=== PATIENT | female | born 1990 | race African-American/Black ===

== ENCOUNTER 2017-03-04 20:57 | Inpatient (IN) | payer OTHER ==
[~2017-03-04 20:57] MED LIST: Lidocaine 2% PF 10 ML AMP (For Epidural Use) ONE; ePHEDrine/0.9% NaCl/PF SYRINGE 50 mg/10 ml ONE
[2017-03-04 21:21] VITALS: BMI 23.6
[2017-03-04] MEDS ORDERED: LR / Pitocin 40 units/1000 ml 1,000 ML IV PRN (21:28)
[2017-03-04] MEDS ORDERED: Ondansetron HCl/PF 4 MG/2 ML Vial IVP PRN ×2 (21:28→22:45)
[2017-03-04] MEDS ORDERED: HYDROcodone/Acetaminophen 5/325 mg Tablet PO PRN ×2 (21:28)
[2017-03-04] MEDS ORDERED: Ibuprofen 800 MG TAB PO PRN (21:28)
[2017-03-04] MEDS ORDERED: Fentanyl 4 mcg/Marc 0.1% Cadd 100 ML ONE (21:45)
[2017-03-04 21:57] LABS: Hematocrit 35.1 % (36.0-47.0); Mean Platelet Volume 9.2 fL (7.4-10.4); Red Blood Cell (RBC) Count 3.96 mill/uL (4.20-5.40); White Blood Cell (WBC) Count 11.1 thou/uL (4.8-10.8)
[2017-03-04] MEDS ORDERED: Lidocaine 1% (PF) 30 ML VIAL SC PRN (22:00)
[2017-03-04] MEDS ORDERED: Lactated Ringer's 1,000 ML IV SCH ×2 (22:00→22:30)
[2017-03-04] MEDS ORDERED: Naloxone HCl 0.4 mg/ml Vial IVP PRN ×2 (22:45)
[2017-03-04] MEDS ORDERED: Lactated Ringer's 500 ML IV PRN (22:45)
[2017-03-04] MEDS ORDERED: Communication Order-Pharmacy FS SCH (22:45)
[2017-03-04] MEDS ORDERED: ePHEDrine/0.9% NaCl/PF SYRINGE 50 mg/10 ml SLOW IVP PRN (22:45)
[2017-03-04] MEDS ORDERED: Promethazine HCl 25 MG/ML VIAL IM PRN (22:45)
[2017-03-04] MEDS ORDERED: diphenhydrAMINE 50 MG/ML VIAL IVP PRN (22:45)
[2017-03-04] MEDS ORDERED: Fentanyl 4mcg/Marcaine 0.1% Cassette 100 ML EPIDURAL SCH (22:45)
[2017-03-04] MEDS ORDERED: Acetaminophen 325 MG TAB PO PRN (22:45)
[2017-03-04] MEDS ORDERED: Eucerin (Mineral Oil/Petrolatum,White) 30 gm Jar TOP PRN (22:45)
[2017-03-05] MEDS ORDERED: Bisacodyl 10 MG SUPP PR PRN (04:09)
[2017-03-05] MEDS ORDERED: Milk Of Magnesia 30 ML UDCUP PO PRN (04:09)
[2017-03-05] MEDS ORDERED: diphenhydrAMINE 25 MG CAP PO PRN (04:09)
[2017-03-05] MEDS ORDERED: Ondansetron HCl/PF 4 MG/2 ML Vial IVP PRN (04:09)
[2017-03-05] MEDS ORDERED: Lanolin Ointment 7 GM TUBE TOP PRN (04:09)
[2017-03-05] MEDS ORDERED: LR / Pitocin 40 units/1000 ml 1,000 ML IV SCH (04:15)
[2017-03-05] MEDS ORDERED: Adacel (T-DAP) 0.5 ML VIAL IM ONE (04:30)
[2017-03-05] MEDS: Ibuprofen 800 MG TAB PO SCH ×3 (04:50→22:16)
[2017-03-05] MEDS: Prenatal Vitamin 1 TAB PO SCH (07:54)
[2017-03-05] MEDS: Docusate (Surfak) 240 MG CAP PO SCH ×2 (07:54→20:02)
[2017-03-05] MEDS: Acetaminophen/Codeine 30-300mg Tablet PO PRN ×2 (07:54→20:01)
[2017-03-05] MEDS ORDERED: FLU VACC QS2017-18 36 mo. & older 0.5 ML SYRINGE IM ONE (09:00)
--- NOTE | 2017-03-05 10:08 | DN ---
DATE OF DELIVERY: 03/04/2017 The patient delivered a female at 2354 on 03/04/2017. Apgars were 8 and 9, weight 3128 grams . Placenta delivered spontaneously followed by Pitocin infusion. There was a small labial lacerati on repaired with 3-0 chromic in the usual fashion. Estimated blood loss is [address] Salas is the delivering physician. Mother and baby were stable in the room in the immediate .
--- NOTE | 2017-03-05 10:28 | PRG ---
DATE OF SERVICE: 03/05/2017 SUBJECTIVE: The patient is a 27-year-old multiparous female day 2, status post a term sp ontaneous vaginal delivery. Significant is that the patient has had no care. She reports that she is tolerating p.o., voiding on her own, having decreased lochia and ambulating. PHYSICAL EXAMINATION: VITAL SIGNS: Today, blood pressure 127/71, temperature 98.2, pulse of 81, respiratory rate of 16. GENERAL: She appears to be in no acute distress. She is alert and oriented, and cooperative and pl easant to interact with. HEAD: Normocephalic, atraumatic. ABDOMEN: Fundus is firm at the umbilicus -1. EXTREMITIES: Nontender, nonedematous. LABORATORY DATA: hemoglobin is pending. ASSESSMENT AND PLAN: The patient is a 27-year-old female day 2, status post a term spont aneous vaginal delivery. Anticipate discharge tomorrow.
[2017-03-05] MEDS: Ferrous Sulfate 325 MG TAB PO SCH ×2 (14:10→18:12)
[2017-03-06 05:06] LABS: Red Blood Cell (RBC) Count 3.35 mill/uL (4.20-5.40); White Blood Cell (WBC) Count 11.7 thou/uL (4.8-10.8)
[2017-03-06] MEDS: Ibuprofen 800 MG TAB PO SCH ×3 (06:09→21:51)
[2017-03-06] MEDS: Acetaminophen/Codeine 30-300mg Tablet PO PRN (06:10)
--- NOTE | 2017-03-06 06:47 | PDOC.PP ---
Post Progress Note Post Day #: 2 Subjective: 03/06/17 at 0645: Patient doing well. No havevy vag bleed. Ready for dsch. PO intake tolerated: yes Flatus: yes Ambulation: yes Vital Signs (12 hours) Temp Pulse Resp BP 03/05/17 20:00 96.2 F L 95 18 127/71 Weight Weight 146 lb - Physical Examination General: NAD Cardiovascular: no m/r/g Respiratory: clear to auscultation bilaterally Abdominal: + bowel sounds, appropriately TTP Psychiatric: A&Ox3 Result Diagrams: 03/06/17 04:50 Additional Labs: Post Labs Hep Bs Antigen Non-Reactive S/CO (NonReactive) 03/04/17 21:47 (1) No care in current Code(s): O09.30 - SUPRVSN OF PREG W INSUFFICIENT ANTENAT CARE, UNSP TRIMESTER Status: Acute (2) Routine follow-up Code(s): Z39.2 - ENCOUNTER FOR ROUTINE FOLLOW-UP Status: Acute - Assessment/Plan Routine care. Doing well. OK for discharge. Patient wishes to return to work in 2 weeks. Motrin prn. Regular diet. No sexual activity for 4 weeks.
--- NOTE | 2017-03-06 06:56 | PDOC.EVN ---
Event Note - Event Note Event Note: 03/06/17 at 0650: DISCHARGE HOLD: I had originally scheduled patient for discharge this AM. She delivered @ 2300 on 03/04/17 and we do not have a GBS result. I discussed release with nursery. Neonataology will keep the baby in for 48 hours obs for no GBS care. Baby seems to have a screen positive for amphetamines. HOWEVER, mother's drug screen was negative on 03/03/17. Unsure if this reflects maternal use prior to presentation or medication administered in labor (epedra?). She had an epidural intrapartum. I will recollect urine tox now and reassess methamphetamines in maternal system. I interviewed the patient. She denies any illict substances. She admits to past use of seroquel only. case management aware.
[2017-03-06] MEDS: Docusate (Surfak) 240 MG CAP PO SCH ×2 (09:21→21:51)
[2017-03-06] MEDS: Prenatal Vitamin 1 TAB PO SCH (09:21)
[2017-03-06] MEDS: Ferrous Sulfate 325 MG TAB PO SCH ×2 (09:21→17:28)
[2017-03-06 10:43] LABS: Amphetamine Not Detected (NotDetected); Methadone Not Detected (NotDetected); Methamphetamine Not Detected (NotDetected)
[2017-03-07] MEDS: Ibuprofen 800 MG TAB PO SCH (05:57)
--- NOTE | 2017-03-07 07:18 | DIS ---
ADMITTING DIAGNOSIS: Labor, and no care. DISCHARGE DIAGNOSIS: Labor, and no care. PROCEDURE: Term spontaneous vaginal delivery. CONSULTATIONS: None. HOSPITAL COURSE: The patient is a 27-year-old female who presented in active labor without care. She ultimately delivered successfully with a term spontaneous vaginal delivery. Her postpar konstantin course has been uncomplicated. She is tolerating p.o., voiding on her own, having decreased loc hia. PHYSICAL EXAMINATION: VITAL SIGNS: Blood pressure 132/82, temperature 98.4, pulse 74, respiratory rate 16. GENERAL: She appears to be in no acute distress. She is alert and oriented, and cooperative and pl easant to interact with. HEAD: Normocephalic, atraumatic. PELVIC: Fundus is firm. EXTREMITIES: Nontender, nonedematous. Her hemoglobin is 9.7, hematocrit 30.0, platelets 142,000. Drug screen came back negativ e; however, baby's came back positive for methamphetamines. The patient is being discharged home. She has Motrin for pain control and has instructions to follo w up with the [facility] [place] in 4-6 weeks for routine check. The patient h as also been given instructions to seek medical attention sooner if she experiences fever, increasin g pain or bleeding.
[2017-03-07] MEDS: Ferrous Sulfate 325 MG TAB PO SCH (09:36)
[2017-03-07] MEDS: Prenatal Vitamin 1 TAB PO SCH (09:36)
[2017-03-07] MEDS: Docusate (Surfak) 240 MG CAP PO SCH (09:36)
[2017-03-07] MEDS: Acetaminophen/Codeine 30-300mg Tablet PO PRN (09:36)
[2017-03-07 09:44] VITALS: BP 123/73; TEMP 98.6
[2017-03-07] MEDS ORDERED: FLU VACC QS2017-18 36 mo. & older 0.5 ML SYRINGE IM ONE (12:30)
== END 2017-03-07 14:05 | disposition home or self-care (01) | DRG 775 ==
LOC: L&D/OP 20:57 → L&D 21:33 → 3SW 03-05 02:05
PROVIDERS: ADMIT Obstetrics & Gynecology; ATTEND Obstetrics & Gynecology
PROC: 10E0XZZ Delivery of Products of Conception, External Approach (ICD-10-PCS; principal; 2017-03-04)
PROC: 0UQMXZZ Repair Vulva, External Approach (ICD-10-PCS; 2017-03-04)
DX: O77.0 Labor and delivery complicated by meconium in amniotic fluid (principal); O70.0 First degree perineal laceration during delivery; Z3A.40 40 weeks gestation of pregnancy; Z37.0 Single live birth
CPT/HCPCS: 36415; 80306; 85027; 86780; 87340; 88307; 90471; 90682; 90715; G0008; J2001; Q2036

== ENCOUNTER 2018-01-07 16:18 | Emergency (ER) | payer OTHER | END 2018-01-07 16:43 | disposition home or self-care (01) | LOC: ERS 16:18 | DX: K04.7 Periapical abscess without sinus (principal); F41.9 Anxiety disorder, unspecified; F32.9 Major depressive disorder, single episode, unspecified; F17.210 Nicotine dependence, cigarettes, uncomplicated | CPT/HCPCS: 99283 ==

== ENCOUNTER 2018-03-17 01:10 | Emergency (ER) | payer OTHER ==
[2018-03-17] MEDS ORDERED: Acetaminophen 500 MG TAB ONE (03:58)
[2018-03-17 04:04] LABS: Specific Gravity 1.014 (1.002-1.036)
[2018-03-17 04:05] LABS: Pregnancy Test - Urine (BHCG) Negative (Negative); Pregu Control Background? CLEAR/WHITE (CLR/WHITE); Pregu Control Bar Appear? YES (CONTROL BAR)
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
== END 2018-03-17 04:20 | disposition home or self-care (01) ==
LOC: EEVIPCON 01:10 → ERS 01:10
DX: S00.83XA Contusion of other part of head, initial encounter (principal); F41.9 Anxiety disorder, unspecified; F32.9 Major depressive disorder, single episode, unspecified; F17.210 Nicotine dependence, cigarettes, uncomplicated; Y04.0XXA Assault by unarmed brawl or fight, initial encounter
CPT/HCPCS: 70450; 70486; 81025

== ENCOUNTER 2018-11-04 06:49 | Emergency (ER) | payer OTHER, SELFPAY ==
[2018-11-04] MEDS ORDERED: Ibuprofen 800 MG TAB ONE (07:09)
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
== END 2018-11-04 07:35 | disposition home or self-care (01) ==
LOC: ERS 06:49
DX: S43.401A Unspecified sprain of right shoulder joint, initial encounter (principal); S13.9XXA Sprain of joints and ligaments of unspecified parts of neck, initial encounter; F17.210 Nicotine dependence, cigarettes, uncomplicated; V44.6XXA Car passenger injured in collision with heavy transport vehicle or bus in traffic accident, initial encounter

== ENCOUNTER 2019-06-09 06:15 | Emergency (ER) | payer OTHER, SELFPAY | END 2019-06-09 06:59 | disposition home or self-care (01) | LOC: ERS 06:15 | DX: T74.11XA Adult physical abuse, confirmed, initial encounter (principal); S00.81XA Abrasion of other part of head, initial encounter; F41.9 Anxiety disorder, unspecified; F32.9 Major depressive disorder, single episode, unspecified; F17.210 Nicotine dependence, cigarettes, uncomplicated; Z79.899 Other long term (current) drug therapy; Y07.03 Male partner, perpetrator of maltreatment and neglect | CPT/HCPCS: 99284 ==

== ENCOUNTER 2019-06-23 08:30 | Emergency (ER) | payer OTHER, SELFPAY ==
[2019-06-23] MEDS ORDERED: Bacitracin 1 PK ONE (09:35)
[2019-06-23] MEDS ORDERED: Adacel (T-DAP) 0.5 ML SYRINGE ONE (09:42)
--- NOTE | 2019-06-23 09:42 | RAD ---
XR Hand Rt 3 View STANDARD History: Trauma Comparison: None. Findings: No acute displaced fracture or malalignment. No radiopaque foreign object. Impression: No acute osseous abnormality.
== END 2019-06-23 10:13 | disposition home or self-care (01) ==
LOC: ERS 08:30
DX: S61.411A Laceration without foreign body of right hand, initial encounter (principal); S09.90XA Unspecified injury of head, initial encounter; F17.210 Nicotine dependence, cigarettes, uncomplicated; F32.9 Major depressive disorder, single episode, unspecified; Y04.0XXA Assault by unarmed brawl or fight, initial encounter
CPT/HCPCS: 90471; 90715

== ENCOUNTER 2019-10-13 23:27 | Emergency (ER) | payer SELFPAY ==
[2019-10-14] MEDS ORDERED: Adacel (T-DAP) 0.5 ML SYRINGE ONE (00:25)
--- NOTE | 2019-10-14 06:25 | RAD ---
RIGHT ANKLE RADIOGRAPHS THREE VIEWS: 10/13/2019 PROVIDED CLINICAL HISTORY: Pain status post injury. FINDINGS: No evidence for fracture or other acute osseous abnormality. If there is persistent clinical concern, conservative management and follow-up imaging are advised. IMPRESSION: As above. POS: [facility]
--- NOTE | 2019-10-14 06:26 | RAD ---
RIGHT FOOT RADIOGRAPHS THREE VIEWS: 10/13/2019 PROVIDED CLINICAL HISTORY: Pain status post injury. FINDINGS: No evidence for fracture or other acute osseous abnormality. If there is persistent clinical concern, conservative management and follow-up imaging are advised. IMPRESSION: As above. POS: [facility]
== END 2019-10-14 00:36 | disposition home or self-care (01) ==
LOC: ERS 23:27
DX: S90.31XA Contusion of right foot, initial encounter (principal); F32.9 Major depressive disorder, single episode, unspecified; F17.210 Nicotine dependence, cigarettes, uncomplicated; Y04.0XXA Assault by unarmed brawl or fight, initial encounter
CPT/HCPCS: 90715

== ENCOUNTER 2019-12-30 19:10 | Inpatient (IN) | payer OTHER ==
[2019-12-30] MEDS ORDERED: hydrALAZINE 20 MG/ML VIAL SLOW IVP PRN ×3 (19:44→23:21)
[2019-12-30 20:39] LABS: #Basophils 0.1 thou/uL (0.0-0.2); #Eosinphils 0.1 thou/uL (0.0-0.7); #Lymphocytes 1.4 thou/uL (1.20-3.40); #Monocytes 0.6 thou/uL (0.11-0.59); #Neutrophils 8.2 thou/uL (1.40-6.50); %Basophils 0.7 % (0.0-1.0); %Eosinophils 1.1 % (0.0-10.0); %Lymphocytes 13.7 % (21.0-51.0); %Monocytes 5.3 % (0.0-10.0); %Neutrophils 79.2 % (42.0-75.0); Hemoglobin 10.7 g/dL (12.0-16.0); Mean Corpuscular HGB CONC 33.8 g/dL (32.0-36.0); Mean Corpuscular Hemoglobin 28.9 pg (27.0-31.0); Mean Corpuscular Volume 85.4 fL (78.0-98.0); Mean Platelet Volume 9.6 fL (7.4-10.4); Platelet Count 161 thou/uL (130-400); Red Blood Cell (RBC) Count 3.69 mill/uL (4.20-5.40); White Blood Cell (WBC) Count 10.4 thou/uL (4.8-10.8)
[2019-12-30 20:42] LABS: Bilirubin Small (Negative); Blood, Urine Negative (Negative); Glucose, Urine (Dipstick) Negative (Negative); Ketone, Urine 15 mg/dL (Negative); Leukocyte Moderate (Negative); Nitrite Negative (Negative); Protein, Urine (Dipstick) 30 mg/dL (Neg-Trace)
[2019-12-30 20:49] LABS: Amphetamine Not Detected (NotDetected); Barbiturates Screen Not Detected (NotDetected); Benzodiazepine Screen Not Detected (NotDetected); Cocaine Metabolite Screen Not Detected (NotDetected); Medtox Control Line Valid? VALID (VALID); Medtox Reader # READER 4; Methadone Not Detected (NotDetected); Methamphetamine Not Detected (NotDetected); Opiate Screen Not Detected (NotDetected); Oxycodone Screen Not Detected (NotDetected); Phencyclidine (PCP) Not Detected (NotDetected); THC/Cannabinoid Screen Not Detected (NotDetected); Tricyclic Screen Detected (NotDetected)
[2019-12-30 20:51] LABS: Clarity Cloudy (Clear)
[2019-12-30 20:52] LABS: Bacteria/HPF 4+ HPF (None Seen); RBC/HPF 0-3 HPF (0-3); Squamous Epithelial 21-50 HPF (0-3); WBC/HPF 21-50 HPF (0-3)
[2019-12-30 20:54] LABS: Urine Culture Reflex No No
[2019-12-30] MEDS ORDERED: Penicillin G Potassium 5 MILL.UNITS VIAL ONE ×2 (21:12)
[2019-12-30] MEDS ORDERED: Betamet Acet/Betamet Na Ph 30 MG/5 ML VIAL ONE (21:12)
[2019-12-30] MEDS ORDERED: Oxytocin 10 UNITS/ML VIAL ONE (21:15)
[2019-12-30] MEDS ORDERED: NS / Oxytocin 40 units/1000ml 1,000 ML ONE (21:15)
[2019-12-30 21:18] LABS: Syphilis Antibody Nonreactive (Nonreactive); Syphilis Antibody Index 0.03 S/CO (<1.00 Non-Reactive)
[2019-12-30 21:37] LABS: Actual Bicarbonate (HCO3a) 20.4 mEq/L (22-28); Base Excess (BEa) -6.1 mEq/L (-2.0 to +3.0)
[2019-12-30 21:39] LABS: Actual Bicarbonate (HCO3v) 19 mEq/L (22-28); Base Excess -4.8 mEq/L (-2.0 to +3.0); pH (Cord, venous) 7.38 (7.32-7.43)
--- NOTE | 2019-12-30 21:48 | ULT ---
OB ULTRASOUND: History: Size and dates, no history of care. FINDINGS: Real-time imaging of the pelvis shows a single viable intrauterine in vertex presentation. The placenta is anterior in location without evidence of previa. Placenta is grade 3. Cervical canal length cannot be estimated on this examination. Amniotic fluid is within normal limits with an amniotic fluid index of 13.6 was obtained. Visually, t he fluid appears borderline decreased. heart rate is 157 beats/minute. Review of anatomy showed no anomalies detected. The cord insertion, intracerebral structu res, and nose and lip regions were not well assessed on this exam. measurements: BPD 8.7 cm 35 weeks 1 day HC 31.4 cm 35 weeks 1 day AC 29.4 cm 33 weeks 3 days FL 7.3 cm 37 weeks 3 days IMPRESSION: 1. Single viable intrauterine in vertex presentations. Overall measurements correspond to a gestational age of 35 weeks 2 days, with estimated date of delivery 02-01-2020. 2. Estimated weight is 2500 (+/- 380 g). 3. Placenta which is anterior in location without evidence of previa. POS: [facility]
[2019-12-30] MEDS ORDERED: NS w/ Oxytocin 10 units 500 ML IV SCH (21:49)
[2019-12-30] MEDS ORDERED: Butorphanol Tartrate 1 MG/ML VIAL SLOW IVP PRN (21:49)
[2019-12-30] MEDS ORDERED: Ibuprofen 800 MG TAB PO PRN (21:49)
[2019-12-30] MEDS ORDERED: HYDROcodone/Acetaminophen 5/325 mg Tablet PO PRN ×3 (21:49→23:21)
[2019-12-30] MEDS ORDERED: NS / Oxytocin 40 units/1000ml 1,000 ML IV PRN (21:49)
[2019-12-30] MEDS ORDERED: Ondansetron PF 4 MG/2 ML Vial IVP PRN ×2 (21:49→23:21)
[2019-12-30] MEDS ORDERED: Lactated Ringer's 1,000 ML IV SCH ×2 (21:49)
[2019-12-30] MEDS ORDERED: Lidocaine 1% (PF) 30 ML VIAL SC PRN (21:49)
[2019-12-30] MEDS ORDERED: Promethazine HCl 25 MG/ML VIAL IM PRN ×2 (21:49→23:21)
[2019-12-30] MEDS ORDERED: Penicillin G 2.5 MILL.units 2.5 MILL.UNITS in Premix Bag 1 BAG IVPB SCH (22:00)
[2019-12-30] MEDS ORDERED: Penicillin G Potassium 5 MILL.UNITS in Sodium Chloride 0.9% 100 ML IVPB SCH (22:00)
[2019-12-30] MEDS ORDERED: Lidocaine 1% (PF) 30 ML VIAL ONE (22:02)
--- NOTE | 2019-12-30 23:15 | OP ---
DATE OF PROCEDURE: 12/30/2019 TIME OF SERVICE: Approximately 2120 hours. DESCRIPTION OF PROCEDURE: was moved from antepartum outpatient exam room B to [facility]. She had a bulging bag of water upon presentation. She did not have an IV started. We were unable to give antepartum corticosteroids and group B strep prophylaxis secondary to lack of IV access. Amniotomy was performed and thin meconium fluid was noted. Over the next 2 to 3 minutes, the patient progressed from complete, complete, and +4 to delivery in a controlled manner without laceration. The infant was placed on maternal abdomen. Cord was clamped and cut, and handed off to Team in attendance. Cord gas was obtained. Cord blood was obtained. Placenta was delivered spontaneously within 5 minutes and was sent for pathologic analysis. Inspection revealed there to be no lacerations. Counts were correct. The patient was entered into routine postdelivery care. We will obtain COVID-19 swab, urine drug screen, and Social Work consult. Job ID: [id number]
[2019-12-30] MEDS ORDERED: Milk Of Magnesia 30 ML UDCUP PO PRN (23:21)
[2019-12-30] MEDS ORDERED: NS / Oxytocin 40 units/1000ml 1,000 ML IV SCH (23:21)
[2019-12-30] MEDS ORDERED: Benzocaine-Menthol 82.5 ML CAN TOP PRN (23:21)
[2019-12-30] MEDS ORDERED: Bisacodyl 10 MG SUPP PR PRN (23:21)
[2019-12-30] MEDS ORDERED: Adacel (T-DAP) 0.5 ML SYRINGE IM ONE (23:21)
[2019-12-30] MEDS ORDERED: diphenhydrAMINE 25 MG CAP PO PRN (23:21)
[2019-12-30] MEDS ORDERED: Preparation H Ointment 28 GM TUBE PR PRN (23:21)
[2019-12-30 23:51] LABS: HBSAg Index 0.15 S/CO (0-0.99); HIV (1/2) Antibody/Antigen Non-Reactive (NonReactive); HIV 1/2 INDEX 0.07 S/CO (<1.00); Hep B Surf Ag Non-Reactive S/CO (NonReactive)
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
[2019-12-31] MEDS: HYDROcodone/Acetaminophen 5/325 mg Tablet PO PRN ×2 (02:15→20:00)
[2019-12-31] MEDS: Ibuprofen 800 MG TAB PO SCH ×3 (05:11→22:03)
--- NOTE | 2019-12-31 07:02 | PDOC.PP ---
Post Progress Note Post Day #: 1 PO intake tolerated: yes Flatus: yes Ambulation: yes Vital Signs (12 hours) Temp Pulse Resp BP Pulse Ox 12/31/19 04:00 98.4 F 64 16 125/76 12/31/19 01:50 98.3 F 64 16 128/81 12/31/19 00:50 98.5 F 68 16 118/69 12/30/19 23:50 98.4 F 75 18 133/86 100 - Physical Examination General: NAD Cardiovascular: no m/r/g, RRR Abdominal: + bowel sounds, lochia Extremities: negative homans (B) Neurological: no gross focal deficits Psychiatric: A&Ox3, normal affect Result Diagrams: 12/30/19 20:27 Additional Labs: Post Labs Blood Type O POSITIVE 12/30/19 20:37 Hep Bs Antigen Non-Reactive S/CO (NonReactive) 12/30/19 20:27 - Assessment/Plan social work consult. covid pending
[2019-12-31] MEDS: Ferrous Sulfate 325 MG TAB PO SCH ×2 (07:27→17:12)
[2019-12-31] MEDS: Docusate Calcium (SURFAK) 240 MG CAP PO SCH ×2 (08:34→22:02)
[2019-12-31 11:42] LABS: SARS-CoV-2 MS2 Positive; SARS-CoV-2 N Gene Negative; SARS-CoV-2 S Gene Negative; SARS-CoV-2 by NAA Not Detected (NotDetected); SARS-CoV-2 orf1ab Negative
[2019-12-31] MEDS ORDERED: Lanolin Ointment 7 GM TUBE TOP PRN (23:46)
[2020-01-01] MEDS: Ibuprofen 800 MG TAB PO SCH ×2 (05:00→13:20)
--- NOTE | 2020-01-01 06:59 | PDOC.PP ---
Post Progress Note Post Day #: PPD1 Subjective: Doing well, no C/o. PO intake tolerated: yes Flatus: yes Ambulation: yes Vital Signs (12 hours) Temp Pulse Resp BP 12/31/19 20:00 98.3 F 78 16 118/60 - Physical Examination General: NAD Respiratory: non-labored breathing Abdominal: no distention Psychiatric: A&Ox3, normal affect Result Diagrams: 12/30/19 20:27 Additional Labs: Post Labs Blood Type O POSITIVE 12/30/19 20:37 Hep Bs Antigen Non-Reactive S/CO (NonReactive) 12/30/19 20:27 - Assessment/Plan Awaiting baby bili results. Has seen SW, no concerns. DC at 1700, RTC 6 weeks, Precautions reviewed.
[2020-01-01] MEDS: Docusate Calcium (SURFAK) 240 MG CAP PO SCH (08:04)
[2020-01-01] MEDS: HYDROcodone/Acetaminophen 5/325 mg Tablet PO PRN (08:04)
[2020-01-01] MEDS: Ferrous Sulfate 325 MG TAB PO SCH ×2 (08:06→16:19)
[2020-01-01 08:21] VITALS: BP 103/59; TEMP 98.2
== END 2020-01-01 17:06 | disposition home or self-care (01) | DRG 807 ==
LOC: L&D/OP 19:10 → L&D 21:11 → 3SW 12-31 00:25
PROVIDERS: ADMIT Obstetrics & Gynecology; ATTEND Obstetrics & Gynecology
PROC: 10E0XZZ Delivery of Products of Conception, External Approach (ICD-10-PCS; principal; 2019-12-30)
PROC: 10907ZC Drainage of Amniotic Fluid, Therapeutic from Products of Conception, Via Natural or Artificial Opening (ICD-10-PCS; 2019-12-30)
DX: O77.0 Labor and delivery complicated by meconium in amniotic fluid (principal); Z37.0 Single live birth; Z3A.34 34 weeks gestation of pregnancy; Z20.828 Contact with and (suspected) exposure to other viral communicable diseases; F19.11 Other psychoactive substance abuse, in remission
CPT/HCPCS: 36415; 76805; 80306; 81001; 82805; 85025; 86762; 86780; 86850; 86900; 86901; 87086; 87340; 87389; 87635; 88307; 99285; J0702; J2001; J2540; J2590; U0003

== ENCOUNTER 2020-03-07 10:08 | Emergency (ER) | payer OTHER | END 2020-03-07 11:12 | disposition home or self-care (01) | LOC: ERS 10:08 | DX: K04.7 Periapical abscess without sinus (principal); K03.81 Cracked tooth; F31.9 Bipolar disorder, unspecified; F17.210 Nicotine dependence, cigarettes, uncomplicated | CPT/HCPCS: 10160 ==